=== PATIENT | female | born 1940 | race Caucasian/White ===

== ENCOUNTER 2016-03-25 11:32 | Outpatient (CLI) | payer OTHER | END 2016-03-25 11:33 | disposition home or self-care (01) | DX: R10.13 Epigastric pain (principal) ==

== ENCOUNTER 2016-04-07 14:58 | Outpatient (CLI) | payer MEDICAID, OTHER ==
[2016-04-07] MEDS ORDERED: IOPAMIDOL-300 100 ML VIAL IVP ONE (15:52)
== END 2016-04-07 14:59 | disposition home or self-care (01) ==
DX: R10.13 Epigastric pain (principal); R10.84 Generalized abdominal pain; I71.00 Dissection of unspecified site of aorta; I70.0 Atherosclerosis of aorta; K55.1 Chronic vascular disorders of intestine; I70.1 Atherosclerosis of renal artery
CPT/HCPCS: 74175; Q9967

== ENCOUNTER 2016-05-18 | Outpatient (CLI) | payer MEDICAID, OTHER | END 2016-05-18 04:21 | disposition critical access hospital (66) | DX: R06.00 Dyspnea, unspecified (principal) | CPT/HCPCS: A0425; A0427 ==

== ENCOUNTER 2016-05-18 04:28 | Inpatient (IN) | payer OTHER, MEDICARE ==
[2016-05-18] MEDS ORDERED: NITROGLYCERIN 2% PASTE TOP STA (04:49)
[2016-05-18] MEDS ORDERED: FUROSEMIDE 40 MG/4 ML VIAL IVP STA (04:51)
[2016-05-18] MEDS ORDERED: FUROSEMIDE 40 MG/4 ML VIAL ONE (04:58)
[2016-05-18] MEDS ORDERED: NITROGLYCERIN 2% PASTE TOP ONE (04:59)
[2016-05-18] MEDS ORDERED: SODIUM CHLORIDE FLUSH 0.9% 10 ML SYRINGE IVP PRN (06:52)
[2016-05-18] MEDS ORDERED: ACETAMINOPHEN 325 MG TABLET PO PRN (06:52)
[2016-05-18] MEDS ORDERED: IPRATROPIUM 0.2 MG/ML NEB INH PRN (06:52)
[2016-05-18] MEDS: NS W/20 MEQ KCL 1,000 ML IV SCH (08:55)
[2016-05-18] MEDS: methylPREDNISolone SUCCINATE 40 MG/ML VIAL IVP SCH ×2 (08:55→21:11)
[2016-05-18] MEDS: SACCHAROMYCES BOULARDII 250 MG CAPSULE PO SCH ×2 (08:56→17:37)
[2016-05-18] MEDS: ENOXAPARIN 40 MG/0.4 ML SYRINGE SUBQ SCH (08:56)
[2016-05-18] MEDS: cefTRIAXone 2 GM in SODIUM CHLORIDE 0.9% MINIBAG 100 ML IV SCH (08:56)
[2016-05-18] MEDS: FUROSEMIDE 40 MG/4 ML VIAL IVP SCH ×2 (09:03→10:08)
[2016-05-18] MEDS: amLODIPine 5 MG TABLET PO ONE ×2 (09:03→10:09)
[2016-05-18] MEDS: METOPROLOL SUCCINATE 25 MG TABLET PO SCH ×2 (09:03→10:08)
[2016-05-18] MEDS: cloNIDine 0.1 MG TABLET PO SCH ×2 (09:03→10:09)
[2016-05-18] MEDS ORDERED: AZITHROMYCIN INJ 500 MG in SODIUM CHLORIDE 0.9% 250 ML IV SCH (10:00)
[2016-05-18] MEDS: HYDROcod/ACETAM 5/325 MG TABLET PO PRN ×3 (10:08→19:50)
[2016-05-18] MEDS: CEFEPIME 2 GM in SODIUM CHLORIDE 0.9% MINIBAG 100 ML IV SCH ×2 (10:15→21:11)
[2016-05-18] MEDS: SODIUM CHLORIDE FLUSH 0.9% 10 ML SYRINGE IVP SCH ×2 (15:10→23:25)
[2016-05-18] MEDS: ALBUTEROL NEB 2.5 MG/3 ML INH PRN (20:40)
[2016-05-18] MEDS: MORPHINE 2 MG/ML SYRINGE IVP PRN (20:56)
[2016-05-18] MEDS ORDERED: LORazepam 2 MG/ML SYRINGE IVP PRN (21:01)
[2016-05-18] MEDS: diphenhydrAMINE INJ 50 MG/ML VIAL IVP PRN (21:03)
[2016-05-18] MEDS: GABAPENTIN 300 MG CAPSULE PO SCH (23:05)
[2016-05-18] MEDS: TEMAZEPAM 7.5 MG CAPSULE PO PRN (23:05)
[2016-05-19] MEDS: guaiFENesin 600 MG TABLET PO PRN ×3 (02:00→16:59)
[2016-05-19] MEDS: SODIUM CHLORIDE FLUSH 0.9% 10 ML SYRINGE IVP SCH ×3 (06:05→21:27)
[2016-05-19] MEDS: GABAPENTIN 300 MG CAPSULE PO SCH ×3 (06:08→21:07)
[2016-05-19] MEDS: HYDROcod/ACETAM 5/325 MG TABLET PO PRN (06:14)
[2016-05-19] MEDS ORDERED: DEXTROSE 50% ABBOJECT 25 GM/50 ML SYRINGE IVP PRN ×2 (07:23→11:56)
[2016-05-19] MEDS ORDERED: GLUCAGON 1 MG/ML VIAL SUBQ PRN ×2 (07:23→11:56)
[2016-05-19] MEDS ORDERED: DEXTROSE 5% 1,000 ML IV PRN ×2 (07:23→11:56)
[2016-05-19] MEDS ORDERED: DEXTROSE GEL 37.5 GM TUBE PO PRN ×2 (07:23→11:56)
[2016-05-19] MEDS: ALBUTEROL NEB 2.5 MG/3 ML INH PRN ×2 (07:28→18:31)
[2016-05-19] MEDS: NS W/20 MEQ KCL 1,000 ML IV SCH (07:42)
[2016-05-19] MEDS ORDERED: INSULIN ASPART 300 UNIT/3 ML PEN SUBQ SCH (08:00)
[2016-05-19] MEDS: PANTOPRAZOLE 40 MG TABLET PO SCH (08:05)
[2016-05-19] MEDS: SACCHAROMYCES BOULARDII 250 MG CAPSULE PO SCH ×2 (08:52→16:59)
[2016-05-19] MEDS: cloNIDine 0.1 MG TABLET PO SCH (08:53)
[2016-05-19] MEDS: oxyCODONE 5 MG TABLET PO SCH ×4 (08:54→21:07)
[2016-05-19] MEDS ORDERED: METOPROLOL TARTRATE 50 MG TABLET PO SCH (09:00)
[2016-05-19] MEDS ORDERED: amLODIPine 5 MG TABLET PO SCH ×2 (09:00)
[2016-05-19] MEDS ORDERED: LOSARTAN 50 MG TABLET PO SCH (09:00)
[2016-05-19] MEDS: methylPREDNISolone SUCCINATE 40 MG/ML VIAL IVP SCH ×2 (09:05→21:07)
[2016-05-19] MEDS: cefTRIAXone 2 GM in SODIUM CHLORIDE 0.9% MINIBAG 100 ML IV SCH (09:07)
[2016-05-19] MEDS: ENOXAPARIN 40 MG/0.4 ML SYRINGE SUBQ SCH (09:11)
[2016-05-19] MEDS: CEFEPIME 2 GM in SODIUM CHLORIDE 0.9% MINIBAG 100 ML IV SCH ×2 (09:40→21:15)
[2016-05-19] MEDS: FUROSEMIDE 40 MG/4 ML VIAL IVP SCH (10:39)
[2016-05-19] MEDS: INSULIN ASPART 300 UNIT/3 ML PEN SUBQ SCH ×3 (12:08→21:22)
[2016-05-19] MEDS ORDERED: SODIUM CHLORIDE INHALATION 3 ML NEB ONE (18:28)
[2016-05-19] MEDS: diphenhydrAMINE INJ 50 MG/ML VIAL IVP PRN (21:20)
[2016-05-20] MEDS: oxyCODONE 5 MG TABLET PO SCH ×6 (00:21→19:53)
[2016-05-20] MEDS: TEMAZEPAM 7.5 MG CAPSULE PO PRN ×2 (00:24→21:34)
[2016-05-20] MEDS: NS W/20 MEQ KCL 1,000 ML IV SCH ×2 (05:10→19:22)
[2016-05-20] MEDS: GABAPENTIN 300 MG CAPSULE PO SCH ×3 (06:21→21:34)
[2016-05-20] MEDS: PANTOPRAZOLE 40 MG TABLET PO SCH (06:23)
[2016-05-20] MEDS: SODIUM CHLORIDE FLUSH 0.9% 10 ML SYRINGE IVP SCH ×3 (06:23→21:35)
[2016-05-20] MEDS: CEFEPIME 2 GM in SODIUM CHLORIDE 0.9% MINIBAG 100 ML IV SCH ×2 (08:09→21:34)
[2016-05-20] MEDS: cefTRIAXone 2 GM in SODIUM CHLORIDE 0.9% MINIBAG 100 ML IV SCH (08:09)
[2016-05-20] MEDS: methylPREDNISolone SUCCINATE 40 MG/ML VIAL IVP SCH ×2 (08:11→21:34)
[2016-05-20] MEDS: METOPROLOL SUCCINATE 25 MG TABLET PO SCH (08:11)
[2016-05-20] MEDS: SACCHAROMYCES BOULARDII 250 MG CAPSULE PO SCH ×2 (08:11→17:08)
[2016-05-20] MEDS: ENOXAPARIN 40 MG/0.4 ML SYRINGE SUBQ SCH (08:11)
[2016-05-20] MEDS: FUROSEMIDE 40 MG/4 ML VIAL IVP SCH (08:11)
[2016-05-20] MEDS: INSULIN ASPART 300 UNIT/3 ML PEN SUBQ SCH ×4 (08:12→21:35)
[2016-05-20] MEDS: HYDROcod/ACETAM 5/325 MG TABLET PO PRN (08:29)
[2016-05-20] MEDS: ALBUTEROL NEB 2.5 MG/3 ML INH PRN ×2 (08:40→13:42)
[2016-05-20] MEDS ORDERED: FUROSEMIDE 20 MG/2 ML VIAL IVP ONE (12:00)
[2016-05-20] MEDS: IPRATROPIUM/ALBUTEROL 3 ML NEB INH SCH ×2 (19:00→19:22)
[2016-05-20] MEDS: MORPHINE 2 MG/ML SYRINGE IVP PRN (19:53)
[2016-05-21] MEDS: oxyCODONE 5 MG TABLET PO SCH ×7 (00:01→23:00)
[2016-05-21] MEDS: diphenhydrAMINE INJ 50 MG/ML VIAL IVP PRN (00:02)
[2016-05-21] MEDS: SODIUM CHLORIDE FLUSH 0.9% 10 ML SYRINGE IVP SCH ×4 (07:04→19:20)
[2016-05-21] MEDS: PANTOPRAZOLE 40 MG TABLET PO SCH (07:04)
[2016-05-21] MEDS: GABAPENTIN 300 MG CAPSULE PO SCH ×3 (07:04→21:16)
[2016-05-21] MEDS: IPRATROPIUM/ALBUTEROL 3 ML NEB INH SCH ×4 (07:30→19:00)
[2016-05-21] MEDS: CEFEPIME 2 GM in SODIUM CHLORIDE 0.9% MINIBAG 100 ML IV SCH ×2 (08:28→21:16)
[2016-05-21] MEDS: METOPROLOL SUCCINATE 25 MG TABLET PO SCH (08:28)
[2016-05-21] MEDS: SACCHAROMYCES BOULARDII 250 MG CAPSULE PO SCH ×2 (08:28→16:49)
[2016-05-21] MEDS: ENOXAPARIN 40 MG/0.4 ML SYRINGE SUBQ SCH (08:28)
[2016-05-21] MEDS: FUROSEMIDE 40 MG/4 ML VIAL IVP SCH (08:28)
[2016-05-21] MEDS: methylPREDNISolone SUCCINATE 40 MG/ML VIAL IVP SCH ×2 (08:28→21:16)
[2016-05-21] MEDS: INSULIN ASPART 300 UNIT/3 ML PEN SUBQ SCH ×4 (08:29→20:00)
[2016-05-21] MEDS: cefTRIAXone 2 GM in SODIUM CHLORIDE 0.9% MINIBAG 100 ML IV SCH (10:13)
[2016-05-21] MEDS: NS W/20 MEQ KCL 1,000 ML IV SCH (16:45)
[2016-05-21] MEDS ORDERED: LABETALOL 20 MG/4 ML SYRINGE IVP SCH (18:59)
[2016-05-21] MEDS: PRAMIPEXOLE 0.25 MG TABLET PO SCH (21:16)
[2016-05-21] MEDS: LOSARTAN 50 MG TABLET PO SCH (21:16)
[2016-05-21] MEDS: cloNIDine 0.1 MG TABLET PO SCH (21:16)
[2016-05-21] MEDS: MORPHINE 2 MG/ML SYRINGE IVP PRN (21:30)
[2016-05-21] MEDS: TEMAZEPAM 7.5 MG CAPSULE PO PRN (22:58)
[2016-05-22] MEDS: oxyCODONE 5 MG TABLET PO SCH ×6 (04:11→23:36)
[2016-05-22] MEDS: PANTOPRAZOLE 40 MG TABLET PO SCH (06:56)
[2016-05-22] MEDS: PRAMIPEXOLE 0.25 MG TABLET PO SCH ×3 (06:56→21:04)
[2016-05-22] MEDS: SODIUM CHLORIDE FLUSH 0.9% 10 ML SYRINGE IVP SCH ×3 (06:56→21:04)
[2016-05-22] MEDS: GABAPENTIN 300 MG CAPSULE PO SCH ×3 (06:56→21:04)
[2016-05-22] MEDS: IPRATROPIUM/ALBUTEROL 3 ML NEB INH SCH ×4 (07:15→21:30)
[2016-05-22] MEDS ORDERED: INSULIN ASPART 300 UNIT/3 ML PEN SUBQ SCH ×2 (08:00→12:40)
[2016-05-22] MEDS: CEFEPIME 2 GM in SODIUM CHLORIDE 0.9% MINIBAG 100 ML IV SCH ×2 (08:53→20:39)
[2016-05-22] MEDS: methylPREDNISolone SUCCINATE 40 MG/ML VIAL IVP SCH (08:53)
[2016-05-22] MEDS: FUROSEMIDE 40 MG/4 ML VIAL IVP SCH (08:53)
[2016-05-22] MEDS: SACCHAROMYCES BOULARDII 250 MG CAPSULE PO SCH ×2 (08:53→16:26)
[2016-05-22] MEDS: cloNIDine 0.1 MG TABLET PO SCH ×2 (08:53→20:28)
[2016-05-22] MEDS: LOSARTAN 50 MG TABLET PO SCH ×2 (08:53→20:28)
[2016-05-22] MEDS: ENOXAPARIN 40 MG/0.4 ML SYRINGE SUBQ SCH (08:53)
[2016-05-22] MEDS: METOPROLOL SUCCINATE 25 MG TABLET PO SCH (08:54)
[2016-05-22] MEDS: INSULIN ASPART 300 UNIT/3 ML PEN SUBQ SCH ×4 (08:54→20:29)
[2016-05-22] MEDS: amLODIPine 5 MG TABLET PO SCH (08:54)
[2016-05-22] MEDS: cefTRIAXone 2 GM in SODIUM CHLORIDE 0.9% MINIBAG 100 ML IV SCH (11:25)
[2016-05-22] MEDS ORDERED: INSULIN ASPART 300 UNIT/3 ML PEN SUBQ STA (12:31)
[2016-05-22] MEDS: guaiFENesin 600 MG TABLET PO PRN (16:26)
[2016-05-22] MEDS: TEMAZEPAM 7.5 MG CAPSULE PO PRN (23:36)
[2016-05-23] MEDS: oxyCODONE 5 MG TABLET PO SCH ×3 (04:36→12:12)
[2016-05-23] MEDS: SODIUM CHLORIDE FLUSH 0.9% 10 ML SYRINGE IVP SCH ×2 (06:22→14:07)
[2016-05-23] MEDS: PANTOPRAZOLE 40 MG TABLET PO SCH (06:22)
[2016-05-23] MEDS: GABAPENTIN 300 MG CAPSULE PO SCH ×2 (06:22→14:07)
[2016-05-23] MEDS: PRAMIPEXOLE 0.25 MG TABLET PO SCH ×2 (06:23→14:07)
[2016-05-23] MEDS: IPRATROPIUM/ALBUTEROL 3 ML NEB INH SCH (08:22)
[2016-05-23] MEDS: ENOXAPARIN 40 MG/0.4 ML SYRINGE SUBQ SCH (08:51)
[2016-05-23] MEDS: cloNIDine 0.1 MG TABLET PO SCH (08:51)
[2016-05-23] MEDS: CEFEPIME 2 GM in SODIUM CHLORIDE 0.9% MINIBAG 100 ML IV SCH (08:51)
[2016-05-23] MEDS: METOPROLOL SUCCINATE 25 MG TABLET PO SCH (08:51)
[2016-05-23] MEDS: amLODIPine 5 MG TABLET PO SCH (08:52)
[2016-05-23] MEDS: FUROSEMIDE 40 MG/4 ML VIAL IVP SCH (08:52)
[2016-05-23] MEDS: SACCHAROMYCES BOULARDII 250 MG CAPSULE PO SCH (08:52)
[2016-05-23] MEDS: INSULIN ASPART 300 UNIT/3 ML PEN SUBQ SCH ×2 (08:53→12:13)
[2016-05-23] MEDS: LOSARTAN 50 MG TABLET PO SCH (08:53)
[2016-05-23] MEDS: methylPREDNISolone SUCCINATE 40 MG/ML VIAL IVP SCH (08:53)
[2016-05-23] MEDS: cefTRIAXone 2 GM in SODIUM CHLORIDE 0.9% MINIBAG 100 ML IV SCH (10:32)
[2016-05-23] MEDS ORDERED: MAGNESIUM OXIDE 400 MG TABLET PO SCH (11:00)
== END 2016-05-23 14:47 | disposition home or self-care (01) | DRG 193 ==
DX: J18.9 Pneumonia, unspecified organism (principal); J96.20 Acute and chronic respiratory failure, unspecified whether with hypoxia or hypercapnia; J44.1 Chronic obstructive pulmonary disease with (acute) exacerbation; J44.0 Chronic obstructive pulmonary disease with (acute) lower respiratory infection; I11.9 Hypertensive heart disease without heart failure; I16.0 Hypertensive urgency; E11.65 Type 2 diabetes mellitus with hyperglycemia; I25.10 Atherosclerotic heart disease of native coronary artery without angina pectoris; E78.5 Hyperlipidemia, unspecified; M35.00 Sjogren syndrome, unspecified; M34.9 Systemic sclerosis, unspecified; F17.210 Nicotine dependence, cigarettes, uncomplicated; I73.9 Peripheral vascular disease, unspecified; G25.81 Restless legs syndrome; K57.90 Diverticulosis of intestine, part unspecified, without perforation or abscess without bleeding; K40.90 Unilateral inguinal hernia, without obstruction or gangrene, not specified as recurrent; Z93.3 Colostomy status; Z99.81 Dependence on supplemental oxygen; I25.2 Old myocardial infarction; Z79.82 Long term (current) use of aspirin; Z79.891 Long term (current) use of opiate analgesic; Z79.51 Long term (current) use of inhaled steroids; Z79.899 Other long term (current) drug therapy

== ENCOUNTER 2016-06-01 05:50 | Outpatient (CLI) | payer MEDICAID, OTHER | END 2016-06-01 05:51 | disposition critical access hospital (66) | DX: R10.9 Unspecified abdominal pain (principal) | CPT/HCPCS: A0425; A0427 ==

== ENCOUNTER 2016-06-01 05:51 | Emergency (ER) | payer MEDICAID, OTHER ==
[2016-06-01] MEDS ORDERED: SODIUM CHLORIDE 0.9% 500 ML IV STA (06:15)
[2016-06-01] MEDS ORDERED: HYDROmorphone 1 MG/ML SYRINGE IVP STA (06:15)
[2016-06-01] MEDS ORDERED: HYDROmorphone 1 MG/ML SYRINGE ONE (06:26)
[2016-06-01] MEDS: IOPAMIDOL-300 100 ML VIAL IVP ONE ×2 (07:56→07:59)
[2016-06-01] MEDS ORDERED: DIATR MEGLU/DIATRIZOATE SODIUM 120 ML BOTTLE PO ONE (14:15)
== END 2016-06-01 14:46 | disposition home or self-care (01) ==
DX: K56.69 Other intestinal obstruction (principal); R10.84 Generalized abdominal pain; Z93.3 Colostomy status; K43.5 Parastomal hernia without obstruction or gangrene; I11.0 Hypertensive heart disease with heart failure; I50.9 Heart failure, unspecified; J44.9 Chronic obstructive pulmonary disease, unspecified; E11.9 Type 2 diabetes mellitus without complications; G89.29 Other chronic pain; F17.200 Nicotine dependence, unspecified, uncomplicated
CPT/HCPCS: 36415; 74177; 74250; 80053; 83690; 85025; 96361; 96374; 99284; J1170; Q9963; Q9967

== ENCOUNTER 2016-08-18 15:16 | Outpatient (CLI) | payer MEDICAID, MEDICARE | END 2016-08-18 15:17 | disposition EMS.NT | LOC: EMS 15:16 | PROVIDERS: ATTEND Surgery | DX: Z04.1 Encounter for examination and observation following transport accident (principal); V53.5XXA Driver of pick-up truck or van injured in collision with car, pick-up truck or van in traffic accident, initial encounter; Y92.414 Local residential or business street as the place of occurrence of the external cause ==

== ENCOUNTER 2016-09-05 16:03 | Outpatient (CLI) | payer MEDICARE, MEDICAID ==
--- NOTE | 2016-09-05 16:41 | XRAY Report ---
Comparison: 02/01/2916, 03/20/2016, and 05/20/2016 Findings: Mild anterior spur formation is noted in the thoracic spine. Normal cardiac size is seen. Mediastinum is not widened. Pulmonary parenchyma demonstrates evidence of emphysema with mild pulmonary hyperaeration. Resolution of previously noted interstitial parenchymal disease is noted as compared to 05/18/2016 and 05/20/2016. IMPRESSION: 1. EMPHYSEMA 2. IMPROVEMENT IS NOTED COMPARED TO 05/18/2016 AND 05/20/2016. RESOLUTION OF PREVIOUSLY NOTED BILATERAL PARENCHYMAL DISEASE IS SEEN. MTDD
== END 2016-09-05 16:04 | disposition home or self-care (01) ==
LOC: DI 16:03
PROVIDERS: ATTEND Physician Assistant Medical
DX: J43.9 Emphysema, unspecified (principal)
CPT/HCPCS: 71020

== ENCOUNTER 2016-12-19 10:58 | Outpatient (CLI) | payer MEDICAID, MEDICARE ==
[2016-12-19 13:37] LABS: ALBUMIN/GLOBULIN RATIO 1.3 (1.0-2.2); BILIRUBIN,TOTAL 0.3 mg/dL (0.2-1.0); CALCIUM 9.1 mg/dL (8.5-10.3); CREATININE 0.9 mg/dL (0.4-1.0); POTASSIUM 4.8 mmol/L (3.5-5.0); TOTAL PROTEIN 6.4 g/dL (6.7-8.2)
== END 2016-12-19 10:59 | disposition home or self-care (01) ==
LOC: LAB.R 10:58
PROVIDERS: ATTEND Physician Assistant Medical
DX: Z79.899 Other long term (current) drug therapy (principal); E11.9 Type 2 diabetes mellitus without complications; D64.9 Anemia, unspecified
CPT/HCPCS: 80053; 83036; 85025

== ENCOUNTER 2016-12-21 14:52 | Outpatient (CLI) | payer MEDICARE ==
[2016-12-21 15:14] LABS: BASOPHILS % (AUTO) 0.4 %; EOSINOPHILS # (AUTO) 0.1 10^3/uL (0.0-0.7); EOSINOPHILS % (AUTO) 1.2 %; HCT - HEMATOCRIT 35.4 % (37.0-47.0); HGB - HEMOGLOBIN 11.1 g/dL (12.0-16.0); LYMPHOCYTES # (AUTO) 1.2 10^3/uL (1.5-3.5); LYMPHOCYTES % (AUTO) 11.6 %; MEAN CORPUSCULAR HEMOGLOBIN 25.7 pg (27.0-31.0); MEAN CORPUSCULAR HGB CONC 31.3 g/dL (32.0-36.0); MEAN CORPUSCULAR VOLUME 82.1 fL (81.0-99.0); MEAN PLATELET VOLUME 8.8 fL (7.9-10.8); MONOCYTES # (AUTO) 0.4 10^3/uL (0.0-1.0); MONOCYTES % (AUTO) 3.7 %; NEUTROPHILS # (AUTO) 8.3 10^3/uL (1.5-6.6); NEUTROPHILS % (AUTO) 83.1 %; RED BLOOD COUNT 4.31 10^6/uL (4.20-5.40); RED CELL DISTRIBUTION WIDTH 15.9 % (12.0-15.0)
[2016-12-21 15:55] LABS: HEMOGLOBIN A1C 0.66 g/dL
== END 2016-12-21 14:53 | disposition home or self-care (01) ==
LOC: LAB 14:52
PROVIDERS: ATTEND Physician Assistant Medical
DX: Z79.899 Other long term (current) drug therapy (principal); E11.9 Type 2 diabetes mellitus without complications; D64.9 Anemia, unspecified
CPT/HCPCS: 36415; 83036; 85025

== ENCOUNTER 2016-12-26 15:49 | Outpatient (CLI) | payer MEDICARE ==
[2016-12-26 16:28] LABS: BILIRUBIN,URINE NEGATIVE (NEGATIVE)
[2016-12-26 17:23] LABS: UR CULTURE IF IND NOT INDICATED; WBC,URINE 0-3 /HPF (0-5)
--- NOTE | 2016-12-27 10:23 | XRAY Report ---
TWO-VIEW CHEST: 12/26/2016 CLINICAL INDICATION: Leukocytosis, rib pain, COPD. COMPARISON: 09/05/2016 FINDINGS: Frontal and lateral views of the chest demonstrate a normal cardiac silhouette. The lungs remain hyperinflated. No new consolidation, effusion, or pneumothorax is present. IMPRESSION: STABLE HYPERINFLATION. NO NEW INFILTRATE. JOB #: [id number] EXT JOB #:[id number]
== END 2016-12-26 15:50 | disposition home or self-care (01) ==
LOC: DI 15:49
PROVIDERS: ATTEND Physician Assistant Medical
DX: J44.9 Chronic obstructive pulmonary disease, unspecified (principal); D72.829 Elevated white blood cell count, unspecified
CPT/HCPCS: 71020; 81001; 87086

== ENCOUNTER 2016-12-31 15:35 | Outpatient (CLI) | payer MEDICARE | END 2016-12-31 15:36 | disposition critical access hospital (66) | LOC: EMS 15:35 | PROVIDERS: ATTEND Surgery | DX: R06.00 Dyspnea, unspecified (principal); M54.9 Dorsalgia, unspecified ==

== ENCOUNTER 2016-12-31 15:43 | Emergency (ER) | payer MEDICARE ==
[2016-12-31] MEDS ORDERED: ADENOSINE 6 MG/2 ML VIAL IVP STA (15:57)
[2016-12-31] MEDS ORDERED: ADENOSINE 6 MG/2 ML VIAL IVP ONE (16:00)
[2016-12-31] MEDS ORDERED: SODIUM CHLORIDE FLUSH 0.9% 10 ML SYRINGE IVP ONE ×5 (16:05→23:42)
[2016-12-31] MEDS ORDERED: diltiaZEM INJ 5 MG/ML VIAL ONE ×4 (16:05→16:36)
[2016-12-31] MEDS ORDERED: diltiaZEM INJ 5 MG/ML VIAL IVP ONE (16:11)
[2016-12-31] MEDS ORDERED: diltiaZEM INJ 5 MG/ML VIAL IVP STA (16:11)
[2016-12-31] MEDS ORDERED: diltiaZEM INJ 125 MG in DEXTROSE 5% 100 ML IV STA (16:11)
[2016-12-31] MEDS ORDERED: HYDROmorphone 0.5 MG/0.5 ML SYRINGE IVP STA (16:12)
[2016-12-31] MEDS ORDERED: ONDANSETRON 4 MG/2 ML VIAL IVP STA (16:12)
--- NOTE | 2016-12-31 16:15 | ED Physician Documentation ---
PD HPI DYSPNEA - Stated complaint Stated Complaint: SOA - Chief complaint Chief Complaint: Resp - History obtained from History obtained from: Patient, Family - History of Present Illness Timing - onset: Today, Yesterday Timing - onset during: Rest Timing - duration: Days (2) Timing - details: Gradual onset, Still present Inciting event(s): URI Improved by: O2, Inhaler/neb, Rest, Sitting up Worsened by: Exertion Associated symptoms: Cough, Wheezing, Chest pain / discomfort, Palpitations Similar symptoms before: Diagnosis (COPD) Recently seen: Not recently seen - Additional information Additional information: 76 y/o Female with a history of COPD and CHF has developed difficulty breathing beginning last night and this is progressed throughout the night. The patient is coming to the emergency department in extremis speaking only in one-word sentences. She is tachycardic on arrival. She denies any prior history of atrial fibrillation. Review of Systems Constitutional: denies: Fever Eyes: denies: Decreased vision Ears: denies: Ear pain Nose: reports: Congestion Throat: denies: Sore throat Cardiac: reports: Chest pain / pressure, Palpitations. denies: Pedal edema, Calf pain Respiratory: reports: Dyspnea, Cough GI: denies: Abdominal Pain, Nausea, Vomiting : denies: Dysuria, Frequency Skin: denies: Rash Musculoskeletal: reports: Neck pain, Back pain Neurologic: reports: Generalized weakness. denies: Focal weakness, Numbness PD PAST MEDICAL HISTORY - Past Medical History Cardiovascular: Congestive heart failure, Hypertension Respiratory: COPD Neuro: None Endocrine/Autoimmune: Type 2 diabetes GI: Other [employer] ATTENDANT: None : Incontinence HEENT: None Psych: None Musculoskeletal: None Derm: None - Past Surgical History Past Surgical History: Yes General: Bowel surgery /[employer] ATTENDANT: Hysterectomy Cardiovascular: Fempop bypass HEENT: Cataracts - Present Medications Home Medications: Ambulatory Orders Medication Instructions Recorded Confirmed Gabapentin 300 mg PO BID 08/17/12 06/01/16 Omeprazole [Prilosec] 20 mg ORAL BID 10/19/12 05/18/16 oxyCODONE [Roxicodone] 5 mg PO Q4H 10/19/12 05/18/16 Clonidine HCl 0.2 mg PO BID 12/29/12 06/01/16 Albuterol Sulfate [Albuterol 1 - 2 puffs INH Q4H PRN 04/25/14 05/18/16 Sulfate Hfa] Doxazosin [Cardura] 2 mg PO DAILY 05/18/16 06/01/16 Ipratropium/Albuterol [Combivent 1 puffs INH Q4H 05/18/16 05/18/16 Respimat] Losartan [Cozaar] 50 mg PO BID 05/18/16 05/18/16 Metoprolol Tartrate 100 mg PO BID 05/18/16 06/01/16 Zolpidem [Ambien] 2.5 - 5 mg PO QPM 05/18/16 06/01/16 amLODIPine [Norvasc] 10 mg PO DAILY 05/18/16 06/01/16 Albuterol 2.5 mg INH Q4HR PRN #120 neb 05/23/16 Amoxicillin/Potassium Clav 1 each PO BID #14 tablet 05/23/16 [Augmentin 875-125 Tablet] Ipratropium/Albuterol [Duoneb] 3 ml INH RTQID #120 neb 05/23/16 Magnesium Oxide [Mag Ox] 400 mg PO DAILYWM tablet 05/23/16 Pramipexole Di-HCl [Pramipexole 0.75 mg PO DAILY PM 06/01/16 06/01/16 Dihydrochloride] Spironolactone [Aldactone] 25 mg PO DAILY 06/01/16 06/01/16 predniSONE [Deltasone] 20 mg PO DAILY 06/01/16 06/01/16 - Allergies Allergies/Adverse Reactions: Allergies Allergy/AdvReac Type Severity Reaction Status Date / Time carisoprodol [From Soma] Allergy Severe Hives Verified 06/01/16 05:58 iodine Allergy Severe Hives Verified 06/01/16 05:58 Sulfa (Sulfonamide Allergy Severe Hives Verified 06/01/16 05:58 Antibiotics) warfarin sodium * Allergy Severe Respiratory Verified 06/01/16 05:58 [From Coumadin] codeine [Codeine] AdvReac Severe Cramps Verified 06/01/16 05:58 propoxyphene HCl * AdvReac Severe Emesis Verified 06/01/16 05:58 [From Darvon] nitrofurantoin AdvReac Intermediate Rash Verified 06/01/16 05:58 [Nitrofurantoin] morphine AdvReac Emesis Verified 06/01/16 05:58 soy AdvReac Cramps Verified 06/01/16 05:58 mycins AdvReac Unknown Cramps Uncoded 06/01/16 05:58 - Social History Does the pt smoke?: Yes Smoking Status: Current every day smoker Does the pt drink ETOH?: No Does the pt have substance abuse?: No - Immunizations Immunizations are current?: Yes - POLST Patient has POLST: Yes POLST Status: Full Code PD ED PE NORMAL - Vitals Vital signs reviewed: Yes (tachy, tachypneic and hypertensive) - General General: Other (Thin 76 y/o female in respiratory distress speaking in 1-2 word sentences and complaining of pain in her back. ) - HEENT HEENT: Atraumatic, PERRL, EOMI - Neck Neck: Supple, no meningeal sign, No bony TTP - Cardiac Cardiac: Other (tachycardic marked) - Respiratory Respiratory: Other (respiratory distress marked. ) - Abdomen Abdomen: Soft, Non tender - Back Back: No CVA TTP, No spinal TTP - Derm Derm: Normal color, Warm and dry, No rash - Extremities Extremities: No deformity, No edema - Neuro Neuro: No motor deficit, No sensory deficit - Psych Psych: Normal mood, Normal affect Results - Vitals Vitals: Vital Signs - 24 hr 12/31/16 12/31/16 12/31/16 15:44 15:45 16:00 Temperature 37.4 C Heart Rate 180 H 184 H 161 H Respiratory 38 H 30 H 31 H Rate Blood Pressure 145/59 H 145/59 H 152/78 H O2 Saturation 96 94 93 12/31/16 12/31/16 12/31/16 16:30 16:58 17:10 Temperature Heart Rate 157 H 137 H 150 H Respiratory 34 H 36 H 40 H Rate Blood Pressure 146/66 H 86/67 L O2 Saturation 92 90 L 12/31/16 12/31/16 12/31/16 17:12 17:13 17:15 Temperature Heart Rate 86 89 87 Respiratory 21 9 L 22 Rate Blood Pressure 90/46 L 85/42 L 90/46 L O2 Saturation 96 95 96 12/31/16 12/31/16 12/31/16 17:18 17:42 17:50 Temperature Heart Rate 86 86 Respiratory 16 18 18 Rate Blood Pressure 103/38 L 106/42 L 102/52 L O2 Saturation 96 100 99 12/31/16 18:09 Temperature Heart Rate 77 Respiratory 20 Rate Blood Pressure 106/49 L O2 Saturation 99 Oxygen O2 Source [] 2L via NC O2 Source Nasal cannula Oxygen Flow Rate 4 - EKG (time done) 1549 Rate: Rate (enter#) (182) Rhythm: Atrial fibrillation Intervals: RBBB QRS: LVH, Poor R wave progression Ischemia: ST depression Compare to prior EKG: Changed from prior EKG (rhythm has changed to afib and the rate has increased to 182) Computer interpretation: Agree with computer 1725 Rate: Rate (enter#) (90) Rhythm: NSR, KAN Intervals: RBBB QRS: LVH Compare to prior EKG: Changed from prior EKG (rhythm has converted to sinus from earlier today. The tracing is similar to prior from 05-18-2016) Computer interpretation: Disagree with computer (The computer calls ST elevation in inferior leads and I cannot make this out.) - Labs Labs: Laboratory Tests 12/31/16 12/31/16 12/31/16 16:28 16:50 16:50 WBC 12.2 H RBC 3.89 L Hgb 9.7 L Hct 31.8 L MCV 81.7 MCH 25.1 L MCHC 30.7 L RDW 16.3 H Plt Count 184 MPV 9.5 Neut # 11.3 H Lymph # 0.4 L [place] # 0.4 Eos # 0.0 Baso # 0.0 Absolute Nucleated RBC 0.02 Nucleated RBC % 0.2 Bld Gas Analysis Time Sample Site ABG pH ABG pCO2 ABG pO2 ABG HCO3 ABG Total CO2 ABG O2 Saturation ABG Oximetry Spot Check ABG Base Excess Brennen Test O2 Delivery Device O2 Liters/Min Sodium 137 Potassium 5.4 H Chloride 105 Carbon Dioxide 24 Anion Gap 8.0 BUN 35 H Creatinine 0.8 Estimated GFR (MDRD) 70 L Glucose 234 H Calcium 8.9 Total Bilirubin 0.8 AST 36 ALT 29 Alkaline Phosphatase 110 Troponin I B-Natriuretic Peptide Total Protein 6.8 Albumin 3.1 L Globulin 3.7 Albumin/Globulin Ratio 0.8 L Lipase 24 TSH Urine Color YELLOW Urine Clarity HAZY Urine pH 6.0 Ur Specific [place] 1.020 Urine Protein 100 H Urine Glucose (UA) NEGATIVE Urine Ketones NEGATIVE Urine Occult Blood SMALL H Urine Nitrite NEGATIVE Urine Bilirubin NEGATIVE Urine Urobilinogen 0.2 (NORMAL) Ur Leukocyte Esterase NEGATIVE Urine RBC 0-5 Urine WBC 0-3 Ur Squamous Epith Cells FEW Squamous Urine Bacteria None Seen Ur Microscopic Review INDICATED Urine Culture Comments NOT INDICATED 12/31/16 12/31/16 12/31/16 16:50 16:50 16:50 WBC RBC Hgb Hct MCV MCH MCHC RDW Plt Count MPV Neut # Lymph # [place] # Eos # Baso # Absolute Nucleated RBC Nucleated RBC % Bld Gas Analysis Time Sample Site ABG pH ABG pCO2 ABG pO2 ABG HCO3 ABG Total CO2 ABG O2 Saturation ABG Oximetry Spot Check ABG Base Excess Brennen Test O2 Delivery Device O2 Liters/Min Sodium Potassium Chloride Carbon Dioxide Anion Gap BUN Creatinine Estimated GFR (MDRD) Glucose Calcium Total Bilirubin AST ALT Alkaline Phosphatase Troponin I 0.05 B-Natriuretic Peptide 349 H Total Protein Albumin Globulin Albumin/Globulin Ratio Lipase TSH 3.43 Urine Color Urine Clarity Urine pH Ur Specific [place] Urine Protein Urine Glucose (UA) Urine Ketones Urine Occult Blood Urine Nitrite Urine Bilirubin Urine Urobilinogen Ur Leukocyte Esterase Urine RBC Urine WBC Ur Squamous Epith Cells Urine Bacteria Ur Microscopic Review Urine Culture Comments 12/31/16 17:50 WBC RBC Hgb Hct MCV MCH MCHC RDW Plt Count MPV Neut # Lymph # [place] # Eos # Baso # Absolute Nucleated RBC Nucleated RBC % Bld Gas Analysis Time 1804 Sample Site RIGHT BRACHIAL ABG pH 7.09 L* ABG pCO2 93 H* ABG pO2 265 H* ABG HCO3 27.9 H ABG Total CO2 30.8 H ABG O2 Saturation 99 H ABG Oximetry Spot Check 100 ABG Base Excess -3.2 L Brennen Test POSITIVE O2 Delivery Device NON REBREATHER MASK O2 Liters/Min 15.00 Sodium Potassium Chloride Carbon Dioxide Anion Gap BUN Creatinine Estimated GFR (MDRD) Glucose Calcium Total Bilirubin AST ALT Alkaline Phosphatase Troponin I B-Natriuretic Peptide Total Protein Albumin Globulin Albumin/Globulin Ratio Lipase TSH Urine Color Urine Clarity Urine pH Ur Specific [place] Urine Protein Urine Glucose (UA) Urine Ketones Urine Occult Blood Urine Nitrite Urine Bilirubin Urine Urobilinogen Ur Leukocyte Esterase Urine RBC Urine WBC Ur Squamous Epith Cells Urine Bacteria Ur Microscopic Review Urine Culture Comments - Rads (name of study) 1 view chest Radiology: Prelim report reviewed (Impression: Hyperinflation, with interval increase in interstitial markings concerning for pulmonary edema.), EMP read indepedently, See rad report Procedures - Procedural sedation Sedation prep: Informed consent, Time out completed, Last meal (last night), PE performed, AHA 3 - severe disease Sedation medications: propofol (60mg) Patient status during sedation: Unresponsive, Respiratory depression, Needed resp assistance Sedation recovery: Recovered uneventfully, Back to baseline - Cardioversion 1 Indication: Tachyarrhythmia, Clinically unstable Risks, benefits, alternatives explained to: Pt, POA Prep: IV, O2, monitoring specialist, Pulse ox, Airway equip Meds: Propofol CS via: Pads, Anterolateral Sync: Monophasic, 100j Post cardioversion rhythm: NSR Complications: Other (none) Performed by: ED MD MEDICAL DECISION MAKING - ED course Complexity details: reviewed old records, reviewed results, re-evaluated patient , considered differential, d/w patient, d/w family ED course: 76-year-old female with a history of COPD presents to the emergency department with an exacerbation and significant tachycardia with atrial fibrillation and a ventricular response in the 170-200 range.The patient comes into the emergency department in distress and is able to maintain a blood pressure and saturation and is conscious and interactive. An IV was begun in the field patient here in the emergency department is initially given 6 mg of adenosine which pause the heart but did not restart in sinus. The patient refused a second dose. She was given diltiazem 20 mg intravenously with reduction in her rate which was temporary and never got below 120. She was given a second 25 mg bolus this time with again reduction in the rate temporarily and a third 25 mg bolus and a drip placed at 5 and then increased to 10. She was receiving magnesium as well. Attempts at medical reduction have failed and the patient remains in extremitas and she is cardioverted with 100 J Synchronized. The cardioversion version is successful reducing her heart rate to 85 in a sinus rhythm. The patient continues to have respiratory distress and without oxygen mask on she desaturates. She is averse to the mask but we are able to place the mask after ativan 1mg IVP. Review of the medic report shows the patient has been given duo-neb treatment in -route and rate jumped to over 200. She was given further albuterol and solumedrol 125mg IVP. The patient does not want to be intubated. Our hospital is now out of critical care beds and a bed is sought at [facility] in [place]. Her condition has improved but is still critical. - Critical Care Time(min): 75 Comments: Not able to leave the bedside. Time Includes: Direct patient care, Review records, Reassess patient, Document care, Coordinate care, Medical consult, Family consult for tx dec Data interpretation: Labs, Pulse ox, ABG, CXR, Prior EKG Procedures excluded from critical care time: See progress note (cardioversion ) Departure - Departure Disposition: 02 Transfer Acute Care Hosp Clinical Impression: Severe chronic obstructive pulmonary disease, Atrial fibrillation with RVR Respiratory failure Qualifiers: Chronicity: acute on chronic Respiratory failure complication: hypoxia and hypercapnia Qualified Code(s): J96.21 - Acute and chronic respiratory failure with hypoxia Condition: Critical
[2016-12-31] MEDS ORDERED: HYDROmorphone 1 MG/ML SYRINGE IVP STA (16:17)
[2016-12-31] MEDS ORDERED: MAGNESIUM SULFATE 2 GRAM 2 GM/50 ML BAG IV ONE ×2 (16:35→16:48)
[2016-12-31] MEDS ORDERED: ONDANSETRON 4 MG/2 ML VIAL ONE (16:40)
[2016-12-31] MEDS ORDERED: HYDROmorphone 1 MG/ML SYRINGE ONE (16:40)
--- NOTE | 2016-12-31 16:48 | XRAY Preliminary Report ---
Exam: XR CHEST 1 VIEW IMPRESSION: Hyperinflation, with interval increase in interstitial markings concerning for pulmonary edema. [facility] SITE ID: [id number]
--- NOTE | 2016-12-31 16:51 | XRAY Report ---
EXAM: CHEST RADIOGRAPHY EXAM DATE: 12/31/2016 04:18 PM. CLINICAL HISTORY: Shortness of breath. Tachycardia. COMPARISON: 12/26/2016. TECHNIQUE: 1 view. FINDINGS: Lungs/Pleura: Stable hyperinflation with interval increase in interstitial prominence. No focal opaci ties evident. No pleural effusion. No pneumothorax. Mediastinum: Within exam limitations, the cardiomediastinal contour is normal. Other: No bony abnormality noted. IMPRESSION: Hyperinflation, with interval increase in interstitial markings concerning for pulmonary edema. [facility] Referring Provider Line: [phone] SITE ID: [id number]
[2016-12-31] MEDS ORDERED: PROPOFOL 200 MG/20 ML VIAL IVP ONE (17:01)
[2016-12-31 17:10] LABS: BASOPHILS % (AUTO) 0.2 %; EOSINOPHILS % (AUTO) 0.1 %; HCT - HEMATOCRIT 31.8 % (37.0-47.0); HGB - HEMOGLOBIN 9.7 g/dL (12.0-16.0); LYMPHOCYTES # (AUTO) 0.4 10^3/uL (1.5-3.5); LYMPHOCYTES % (AUTO) 3.5 %; MEAN CORPUSCULAR HEMOGLOBIN 25.1 pg (27.0-31.0); MEAN CORPUSCULAR HGB CONC 30.7 g/dL (32.0-36.0); MEAN CORPUSCULAR VOLUME 81.7 fL (81.0-99.0); MEAN PLATELET VOLUME 9.5 fL (7.9-10.8); MONOCYTES # (AUTO) 0.4 10^3/uL (0.0-1.0); MONOCYTES % (AUTO) 3.6 %; NEUTROPHILS # (AUTO) 11.3 10^3/uL (1.5-6.6); NEUTROPHILS % (AUTO) 92.6 %; NUCLEATED RED BLOOD CELLS AUTO 0.2 /100WBC; RED BLOOD COUNT 3.89 10^6/uL (4.20-5.40); RED CELL DISTRIBUTION WIDTH 16.3 % (12.0-15.0); UNCORRECTED WHITE BLOOD COUNT 12.2 x10^3/uL; WHITE BLOOD COUNT 12.2 x10^3/uL (4.8-10.8)
[2016-12-31 17:15] LABS: ALBUMIN/GLOBULIN RATIO 0.8 (1.0-2.2); BILIRUBIN,TOTAL 0.8 mg/dL (0.2-1.0); CALCIUM 8.9 mg/dL (8.5-10.3); CREATININE 0.8 mg/dL (0.4-1.0); POTASSIUM 5.4 mmol/L (3.5-5.0); TOTAL PROTEIN 6.8 g/dL (6.7-8.2)
[2016-12-31 17:22] LABS: BILIRUBIN,URINE NEGATIVE (NEGATIVE)
[2016-12-31 17:24] LABS: UA w/ MICROSCOPIC CHARGE YES
[2016-12-31 17:30] LABS: UR CULTURE IF IND NOT INDICATED; WBC,URINE 0-3 /HPF (0-5)
[2016-12-31] MEDS ORDERED: LORazepam 2 MG/ML SYRINGE ONE ×2 (17:37→23:41)
[2016-12-31] MEDS ORDERED: LORazepam 2 MG/ML SYRINGE IVP STA ×2 (17:45→23:35)
[2016-12-31 18:03] LABS: ABG ANALYSIS TIME 1804; ABG BASE EXCESS -3.2 mmol/L (-2.0-3.0); ABG HCO3 27.9 mmol/L (22.0-26.0); ABG OXYGEN SATURATION 99 % (94-98); ABG TCO2 30.8 MMOL/L (21.0-29.0)
[2016-12-31 18:04] LABS: ABG O2 DEVICE NON REBREATHER MASK; ABG SATURATION PULSE OXIMETRY% 100 %; ABG SITE OF DRAW RIGHT BRACHIAL; ALLEN TEST POSITIVE
[2016-12-31 18:06] LABS: ABG PCO2 93 mmHg (34-45); ABG PH 7.09 (7.35-7.45); ABG PO2 265 mmHg (80-100)
[2016-12-31 20:38] LABS: ABG ANALYSIS TIME 1946; ABG HCO3 32.8 mmol/L (22.0-26.0); ABG OXYGEN SATURATION 96 % (94-98); ABG PO2 112 mmHg (80-100); ABG TCO2 36.5 MMOL/L (21.0-29.0); ALLEN TEST POSITIVE
[2016-12-31 20:39] LABS: ABG O2 DEVICE NASAL CANNULA; ABG PH 7.05 (7.35-7.45); ABG SATURATION PULSE OXIMETRY% 97 %; ABG SITE OF DRAW RIGHT BRACHIAL
[2016-12-31 20:40] LABS: ABG PCO2 122 mmHg (34-45)
--- NOTE | 2016-12-31 22:04 | ED Physician Documentation ---
ED Addendum - Addendum Addendum: 12/31/16 21:59 I am assuming care after the treating ER physician has finished his shift. Verbal reports is the patient has respiratory failure from COPD and some CHF. She had been in rapid A. fib and cardioverted to a sinus rhythm in which she remains. She however has had some labored breathing which did improve with some nebulizer treatments, steroids and magnesium. She had had elevated CO2 on blood gas showing respiratory failure. She was placed on BiPAP when the repeat blood gas showed worsening CO2 level despite her now being in sinus rhythm and improved respirations. She was placed on BiPAP and has been on that. At the time of handoff, the patient was awaiting transfer to [facility]. I did talk with Dr. Adams, the payroll supervisor at [facility]. She asked for another blood gas having been on BiPAP now and will do that. I heard from nursing staff and review of the prior note that the patient is a DO NOT INTUBATE and so we are attempting the best with BiPAP. I will convey that to [facility], as I was unaware of the DNI when I talked with Dr. Adams. We do not have any ICU beds at our facility and that is the reason for transfer.
[2016-12-31 22:30] LABS: ABG ANALYSIS TIME 2230; ABG BASE EXCESS -0.9 mmol/L (-2.0-3.0); ABG HCO3 29.2 mmol/L (22.0-26.0); ABG OXYGEN SATURATION 96 % (94-98); ABG PO2 93 mmHg (80-100); ABG TCO2 31.8 MMOL/L (21.0-29.0); ALLEN TEST POSITIVE
[2016-12-31 22:31] LABS: ABG PH 7.15 (7.35-7.45); ABG SITE OF DRAW RIGHT BRACHIAL
[2016-12-31 22:32] LABS: ABG PCO2 85 mmHg (34-45)
[2016-12-31 22:33] LABS: ABG INSPIRATORY POS AIRWAY P 18 cmH2O; ABG MODE OF VENTILATION SYNCHRONOUS/TIMES; ABG O2 DEVICE BiPAP; ABG RESPIRATORY RATE 18 b/min; ABG SATURATION PULSE OXIMETRY% 97 %
[2016-12-31 22:34] LABS: ABG EXPIRATORY POS AIRWAY P 5 cmH2O
[2016-12-31 23:56] VITALS: BP 126/63
== END 2016-12-31 23:50 | disposition short-term general hospital (02) ==
LOC: EDUNIT# → ED 15:43
DX: J44.9 Chronic obstructive pulmonary disease, unspecified (principal); I48.91 Unspecified atrial fibrillation; J96.21 Acute and chronic respiratory failure with hypoxia; I45.2 Bifascicular block; I11.0 Hypertensive heart disease with heart failure; I50.9 Heart failure, unspecified; E11.9 Type 2 diabetes mellitus without complications; F17.200 Nicotine dependence, unspecified, uncomplicated
CPT/HCPCS: 36415; 36600; 71010; 80053; 81001; 82803; 83690; 83880; 84443; 84484; 85025; 87040; 92960; 93005; 94660; 94770; 96365; 96367; 96375; 96376; 99285; 99291; J0153; J1170; J2060; 81003; 87086

== ENCOUNTER 2016-12-31 23:50 | Outpatient (CLI) | payer MEDICARE | END 2016-12-31 23:51 | disposition short-term general hospital (02) | LOC: EMS 23:50 | PROVIDERS: ATTEND Surgery | DX: R06.02 Shortness of breath (principal); I48.91 Unspecified atrial fibrillation | CPT/HCPCS: A0170; A0425; A0426; A0427 ==